=== PATIENT | female | born 1990 | race American Indian/Alaskan Native ===

== ENCOUNTER 2021-09-12 22:45 | Emergency (ER) | payer MEDICAID ==
[2021-09-12 22:59] VITALS: BP 129/83
--- NOTE | 2021-09-12 23:11 | Emergency Department Report ---
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 She states she was pushing the crotchet needle through, it was a little difficult and so was pushing hard when needle sliped and went into her distal left 3rd finger ) Severity: moderate Symptoms: Yes Pain with Movement, Yes Limited Range of Movement, Yes Laceration or Abrasion, No Deformity, No Numbness, No Weakness, No Swelling, No Bruising/Ecchymosis Other History: pt states she was crotcheting hair. She states she was pushing the crotchet needle through, it was a little difficult and so was pushing hard when needle sliped and went into her distal left 3rd finger. She report she was unable to remove needle and she report significant pain to distal aspect of left 3rd finger. She denies any bleeding. She is right hand dominant. She is not up to date on immunizations. ED Review of Systems ROS: Stated complaint: DAINA NEEDLE IN FINGER Other details as noted in HPI Comment: All other systems reviewed and negative Musculoskeletal: arthralgia Skin: other (PW with retained BF ) ED Past Medical Hx - Past Medical History Previous Medical History?: No - Surgical History Past Surgical History?: No - Social History Smoking Status: Never Smoker Substance Use Type: None - Medications Home Medications: Home Medications Medication Instructions Recorded Confirmed Last Taken Type Acetaminophen [Tylenol] 650 mg PO QID PRN #30 capsule 08/29/18 Unknown Rx Menthol/Camphor [[place] 1 applicatio TP TID PRN #1 tube 08/29/18 Unknown Rx Ointment] Ketorolac [Toradol] 10 mg PO Q6H PRN #20 tablet 09/13/21 Unknown Rx Upper Extremity Exam - Exam General: Vital signs noted. No distress. Alert and acting appropriately. Head and Torso: No HEENT Abnormality, No Neck Tenderness, No Chest/Lungs Abnormality, No Abdominal Tenderness, No Back Tenderness Shoulder Exam: Yes Normal Range of Motion in Shoulder, No Shoulder Tenderness, No Clavicle Tenderness, No Shoulder Deformity, No AC Joint Tenderness Arm Exam: No Arm/Humerus Tenderness, No Arm Deformity Elbow: Yes Normal Range of Motion in Elbow, No Elbow Tenderness, No Elbow Deformity Forearm: No Forearm Tenderness, No Forearm Deformity, No Pain with Pronation, No Pain with Supination Wrist: Yes Normal ROM in Wrist, No Wrist Tenderness, No Wrist Deformity, No Snuffbox Tenderness, No Pain with Axial Thumb Compression Hand: Yes Digit Tenderness (distal dorsal aspect of left 3rd finger around PW), No Normal ROM in Digit(s) (DIP joint help in slight flexion; pt with difficulty fully flex and ext the finger due to pain and retained needle in finger) CMS Exam: Yes Broken Skin (PW with retained crotchet needle noted posterior nail fold of left 3 rd finger. No active bleeding. No nail involvement ), Yes Normal Distal Pulses, Yes Normal Capillary Refill, Yes Normal Distal Sensation ED Course Vital Signs 09/12/21 22:51 Temperature 99.1 F Pulse Rate 89 Respiratory 14 Rate Blood Pressure 129/83 O2 Sat by Pulse 98 Oximetry - Nerve Block Consent Obtained: verbal consent Time Out Performed: No Local Anesthetic Used: Marcaine 0.25% Amount of anesthesia used: 5 Side: left Nerve Blocks: digital (3rd finger ) Procedure Successful: Yes Complications: none Patient Tolerated Procedure: well, no complications Additional Comments: FB removal after digital block Crotchet needle successfully removed with gentle manipulation. Complete removal of needle. Slight bleeding after removal, controlled with pressure Pt tolerated procedure well without complication ED Medical Decision Making - Radiology Data Radiology results: report reviewed Patient: JAMES CAMACHO MR#: [id number] : 1990 Acct:[id number] Age/Sex: 31 / F ADM Date: 09/12/21 Loc: ED Attending Dr: Ordering Physician: HE CALLEJAS Date of Service: 09/12/21 Procedure(s): XR finger(s) 2+V LT Accession Number(s): [id number] cc: HE CALLEJAS Fluoro Time In Minutes: Left fingers 3 views INDICATION: Retained foreign body FINDINGS: Old traumatic deformity suggested within the fifth finger and MCP joint. Initial dictation overlying the distal phalanx. No definite foreign body is otherwise seen. Clinical correlation. Signer Name: Stephon Mejía MD Signed: 09/12/2021 11:44 PM Workstation Name: [id number] Transcribed By: CW Dictated By: SANTHOSH MEJÍA MD Electronically Authenticated By: SANTHOSH MEJÍA MD Signed Date/Time: 09/12/212343 DD/ 42 TD/TT: Critical care attestation.: If time is entered above; I have spent that time in minutes in the direct care of this critically ill patient, excluding procedure time. ED Disposition Clinical Impression: Puncture wound Disposition: HOME / SELF CARE / HOMELESS Is pt being admited?: No Does the pt Need Aspirin: No Condition: Stable Instructions: Puncture Wound, [id number] Additional Instructions: Keep finger clean daily with soap and water. Dry well after each cleaning and apply neosporin after each clean. Do this daily until area heals. Follow up with PCP. Return to ED if worse. Prescriptions: Ketorolac [Toradol] 10 mg PO Q6H PRN #20 tablet PRN Reason: Pain Referrals: [facility] [Provider Group] - 3-5 Days Forms: Work/School Release Form(ED) Time of Disposition: 00:31
[2021-09-12] MEDS ORDERED: TETANUS,DIPH,PERTUSS(ACELL) VACCINE 0.5 ML SYRINGE IM ONE (23:14)
--- NOTE | 2021-09-12 23:48 | XRay Report ---
Left fingers 3 views INDICATION: Retained foreign body FINDINGS: Old traumatic deformity suggested within the fifth finger and MCP joint. Initial dictation overlying the distal phalanx. No definite foreign body is otherwise seen. Clinical correlation. Signer Name: Stephon Mejía MD Signed: 09/12/2021 11:44 PM Workstation Name: [id number]
[2021-09-13] MEDS ORDERED: NEOMY 3.5 MG/BACIT 400 UNITS/POLY B 5000 UNITS/GM OINT PACKET TP ONE (00:32)
== END 2021-09-13 00:55 | disposition home or self-care (01) ==
LOC: ED 22:45
DX: S60.453A Superficial foreign body of left middle finger, initial encounter (principal); X58.XXXA Exposure to other specified factors, initial encounter; Y93.89 Activity, other specified; Y92.89 Other specified places as the place of occurrence of the external cause; Y99.8 Other external cause status
CPT/HCPCS: 64450; 73140; 90471; 90715; 99283; A6250

== ENCOUNTER 2022-01-25 21:20 | Emergency (ER) | payer OTHER, MEDICAID ==
[2022-01-25 21:59] VITALS: BP 106/66
[2022-01-25] MEDS ORDERED: IBUPROFEN 600 MG TAB PO ONE (22:10)
[2022-01-25] MEDS ORDERED: ACETAMINOPHEN 500 MG TAB PO ONE (22:10)
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
[2022-01-26] MEDS ORDERED: ACETAMINOPHEN 500 MG TAB PO ONE ×2 (02:35→02:37)
[2022-01-26] MEDS ORDERED: IBUPROFEN 600 MG TAB PO ONE ×2 (02:35→02:37)
== END 2022-01-26 03:00 | disposition home or self-care (01) ==
LOC: ED 21:20
DX: S29.012A Strain of muscle and tendon of back wall of thorax, initial encounter (principal); M25.512 Pain in left shoulder; M62.830 Muscle spasm of back; V89.2XXA Person injured in unspecified motor-vehicle accident, traffic, initial encounter; Y93.89 Activity, other specified; Y92.488 Other paved roadways as the place of occurrence of the external cause; Y99.8 Other external cause status
CPT/HCPCS: 72070; 99283